=== PATIENT | male | born 1980 | race Caucasian/White ===

== ENCOUNTER 2023-06-07 16:32 | Emergency (ER) | payer SELFPAY ==
[2023-06-07 16:59] LABS: GLUCOSE, URINE (UA) NEGATIVE (NEGATIVE); KETONES,URINE (UA) >=80 mg/dL (NEGATIVE); LEUKOCYTE ESTERASE, URINE NEGATIVE (NEGATIVE); NITRITE,URINE POSITIVE (NEGATIVE); OCCULT BLOOD,URINE SMALL (NEGATIVE); PROTEIN,URINE 30 mg/dL (NEGATIVE); UROBILINOGEN,URINE 2 E.U./dL (NORMAL)
[2023-06-07 17:02] LABS: BILIRUBIN,URINE NEGATIVE (NEGATIVE); CLARITY,URINE CLOUDY (CLEAR); ICTOTEST,URINE NEGATIVE
[2023-06-07 17:08] LABS: BASOPHILS # (AUTO) 0.1 10^3/uL (0.0-0.1); BASOPHILS % (AUTO) 0.4 %; EOSINOPHILS % (AUTO) 0.2 %; HCT - HEMATOCRIT 45.3 % (42.0-52.0); HGB - HEMOGLOBIN 15.4 g/dL (14.0-18.0); LYMPHOCYTES # (AUTO) 1.7 10^3/uL (1.5-3.5); LYMPHOCYTES % (AUTO) 10.3 %; MEAN CORPUSCULAR VOLUME 85.3 fL (80.0-94.0); MEAN PLATELET VOLUME 9.4 fL (7.4-11.4); MONOCYTES # (AUTO) 0.7 10^3/uL (0.0-1.0); MONOCYTES % (AUTO) 4.4 %; NEUTROPHILS % (AUTO) 84.5 %; PLT - PLATELET COUNT 345 10^3/uL (130-450); RED BLOOD COUNT 5.31 10^6/uL (4.70-6.10); RED CELL DISTRIBUTION WIDTH 12.1 % (12.0-15.0); WHITE BLOOD COUNT 16.5 x10^3/uL (4.8-10.8)
[2023-06-07 17:09] LABS: AMORPHOUS SEDIMENT,UR Few /LPF; BACTERIA,URINE Few /HPF (None Seen); RBC,URINE 0-5 /HPF (0-5); SQUAMOUS EPITHELIAL CELL,UR RARE Squamous (<= Few); WBC,URINE 0-3 /HPF (0-3)
[2023-06-07 17:20] LABS: ALBUMIN 4.8 g/dL (3.2-5.5); ALBUMIN/GLOBULIN RATIO 1.5 (1.0-2.2); BILIRUBIN,TOTAL 0.6 mg/dL (0.2-1.0); CALCIUM 9.7 mg/dL (8.5-10.3); CREATININE 0.9 mg/dL (0.6-1.3); POTASSIUM 3.7 mmol/L (3.5-4.5)
[2023-06-07] MEDS ORDERED: SODIUM CHLORIDE 0.9% 1,000 ML IV STA (17:46)
[2023-06-07] MEDS ORDERED: ONDANSETRON 4 MG/2 ML VIAL IVP STA (17:46)
[2023-06-07] MEDS ORDERED: HYDROmorphone 1 MG/ML CARPUJECT IVP STA (17:53)
--- NOTE | 2023-06-07 17:55 | ED Physician Documentation ---
PD HPI ABD PAIN - Stated complaint Stated Complaint: ABD PX/VOMIT/ - Chief complaint Chief Complaint: Abd Pain - History obtained from History obtained from: Patient - History of Present Illness Timing - details: Gradual onset, Still present, Waxing and waning Pain level max: 7 Quality: Cramping, Aching, Stabbing, Throbbing Location: All over / everywhere, RLQ, Suprapubic Improved by: Position Worsened by: Palpation Associated symptoms: Nausea, Diarrhea, Hematuria, Loss of appetite. No: Fever, Vomiting, Hematemesis, Constipation, Dysuria - Additional information Additional information: This is a very nice 42-year-old male who presents with generalized lower abdominal pain as well as some hematuria. He states symptoms started when he woke up today. He has had several episodes of diarrhea and has not had an appetite. He feels nauseous, and has generalized abdominal pain though more focally in the right lower quadrant and suprapubic regions. He has not had any flank pain or pain radiating from the back into the pelvis. He has not had a fever to his knowledge, no chest pain or difficulty breathing, no recent cough or URI symptoms. He has no chronic medical conditions, and has not taken any medication for this issue. He last ate yesterday. Review of Systems Constitutional: reports: Reviewed and negative Eyes: reports: Reviewed and negative Ears: reports: Reviewed and negative Nose: reports: Reviewed and negative Throat: reports: Reviewed and negative Cardiac: reports: Reviewed and negative Respiratory: reports: Reviewed and negative GI: reports: Abdominal Pain, Nausea, Vomiting. denies: Constipation, Diarrhea : reports: Hematuria. denies: Dysuria, Frequency, Hesitancy Skin: reports: Reviewed and negative Musculoskeletal: reports: Reviewed and negative Neurologic: reports: Reviewed and negative PD PAST MEDICAL HISTORY - Past Medical History Past Medical History: Yes Cardiovascular: None Respiratory: None Neuro: None Endocrine/Autoimmune: None GI: None : None HEENT: None Psych: None Musculoskeletal: None Derm: None - Past Surgical History Past Surgical History: No - Present Medications Home Medications: Ambulatory Orders Medication Instructions Recorded Confirmed Ondansetron Odt [Zofran] 4 mg TL Q6H PRN #10 tablet 06/07/23 Sulfamethox/Trimeth 800/160 1 tablet PO BID 7 Days #14 tablet 06/07/23 [Bactrim Ds] - Allergies Allergies/Adverse Reactions: Allergies Allergy/AdvReac Type Severity Reaction Status Date / Time No Known Drug Allergies Allergy Verified 06/07/23 16:48 - Social History Does the pt smoke?: No Smoking Status: Never smoker Does the pt drink ETOH?: No Does the pt have substance abuse?: No - Immunizations Immunizations are current?: Yes PD ED PE NORMAL - Vitals Vital signs reviewed: Yes - General General: Alert and oriented X 3, No acute distress (Appears mildly restless, cannot find position of comfort), Well developed/nourished - HEENT HEENT: Atraumatic, Moist mucous membranes - Neck Neck: Supple, no meningeal sign, No JVD - Cardiac Cardiac: RRR, No murmur - Respiratory Respiratory: No respiratory distress, Clear bilaterally - Abdomen Abdomen: Normal bowel sounds, Soft, Other (Generalized lower abdominal tenderness most prominently in the right lower quadrant and McBurney's point but also suprapubic and some lesser discomfort in the left lower quadrant. Negative Schumacher's) - Back Back: No CVA TTP, No spinal TTP - Derm Derm: Normal color, Warm and dry - Extremities Extremities: No deformity, No tenderness to palpate, Normal ROM s pain, No edema, No calf tenderness / cord - Neuro Neuro: Alert and oriented X 3 Eye Opening: Spontaneous Motor: Obeys Commands Verbal: Oriented GCS Score: 15 - Psych Psych: Normal mood, Normal affect Results - Vitals Vitals: Vital Signs - 24 hr 06/07/23 06/07/23 06/07/23 16:48 17:05 19:00 Temperature 36.3 C L 36.7 C Heart Rate 80 56 L Respiratory 18 17 Rate Blood Pressure 121/86 H O2 Saturation 97 96 06/07/23 20:00 Temperature Heart Rate 78 Respiratory 16 Rate Blood Pressure 109/89 H O2 Saturation 96 Oxygen O2 Source Room air - Labs Labs: Laboratory Tests 06/07/23 06/07/23 06/07/23 16:55 17:00 17:00 WBC 16.5 H RBC 5.31 Hgb 15.4 Hct 45.3 MCV 85.3 MCH 29.0 MCHC 34.0 RDW 12.1 Plt Count 345 MPV 9.4 Neut # (Auto) 14.0 H Lymph # (Auto) 1.7 Swift # (Auto) 0.7 Eos # (Auto) 0.0 Baso # (Auto) 0.1 Absolute Nucleated RBC 0.00 Nucleated RBC % 0.0 Sodium 138 Potassium 3.7 Chloride 105 Carbon Dioxide 24 Anion Gap 9.0 BUN 12 Creatinine 0.9 Estimated GFR (MDRD) 93 Glucose 112 H Calcium 9.7 Total Bilirubin 0.6 AST 18 ALT 20 Alkaline Phosphatase 65 Total Protein 8.0 Albumin 4.8 Globulin 3.2 Albumin/Globulin Ratio 1.5 Lipase 16 Urine Color YELLOW Urine Clarity CLOUDY Urine pH 6.0 Ur Specific Firth 1.025 Urine Protein 30 H Urine Glucose (UA) NEGATIVE Urine Ketones >=80 H Urine Occult Blood SMALL H Urine Nitrite POSITIVE H Urine Bilirubin NEGATIVE Urine Urobilinogen 2 H Ur Leukocyte Esterase NEGATIVE Urine RBC 0-5 Urine WBC 0-3 Ur Squamous Epith Cells RARE Squamous Amorphous Sediment Few Urine Bacteria Few Ur Microscopic Review INDICATED Urine Culture Comments INDICATED - Rads (name of study) No standard instances Relevant Findings:: Final report received PD Medical Decision Making - ED course Complexity details: reviewed results, re-evaluated patient, considered differential, d/w patient ED course: 42-year-old male presented with generalized lower abdominal pain that started today as described in HPI. Pain is right lower quadrant and across the lower abdomen thus there is concern for possible appendicitis versus UTI, colitis, diverticulitis, kidney ureteral stone. We obtained labs which are significant for white blood cell count of 16,000, otherwise stable. His urinalysis showed nitrites but no other signs of infection, small amount of blood. He remained afebrile and nontoxic-appearing here. He received IV fluids, Zofran and a dose of Dilaudid. I also started him on Zosyn due to suspected appendicitis pending CT scan however CT scan came back as normal. There is no sign of appendicitis or other acute abdominal abnormality. Patient generally feels better after treatment but was fairly surprised at the normal CT scan. I discussed with patient that I think reasonable to treat for this possible UTI pending culture, I am going to place him on Bactrim, and prescribe him Zofran, he can take ibuprofen and Tylenol as needed. He was advised if he developed a fever, increasing pain, or new concerns to return to the ER otherwise anticipate improvement in the next several days. He was advised that if the hematuria does not resolve in the next few days to schedule follow-up with PCP for repeat urinalysis. Departure - Departure Disposition: 01 Home, Self Care Clinical Impression: Abdominal pain Qualifiers: Abdominal location: generalized Qualified Code(s): R10.84 - Generalized abdominal pain Urinary tract infection Qualifiers: Urinary tract infection type: acute cystitis Hematuria presence: with hematuria Qualified Code(s): N30.01 - Acute cystitis with hematuria Condition: Good Instructions: ED UTI Cystitis Male, ED Abdominal Pain Unkn Cause Male Prescriptions: Sulfamethox/Trimeth 800/160 [Bactrim Ds] 1 tablet PO BID 7 Days #14 tablet Ondansetron Odt [Zofran] 4 mg TL Q6H PRN #10 tablet PRN Reason: Nausea / Vomiting Comments: Emory, it is not entirely clear what caused such severe pain. You may have passed a small kidney stone but there is no evidence of stones on the CT scan, o r an appendicitis or other issue on the CT scan. You do have minor signs of infection in the urine so I am going to treat you for possible UTI with antibiotics for the next 7 days. Have also given you was nausea medication to take as needed. You can take ibuprofen and Tylenol. If you develop a fever or worsening symptoms, please return to the ER. Medications sent to [facility]. Forms: PCP List
[2023-06-07] MEDS ORDERED: PIPERACILLIN/TAZOBACTAM 4.5 GM in SODIUM CHLORIDE 0.9% MINIBAG 100 ML IV STA (19:54)
[2023-06-07] MEDS ORDERED: iohexoL-300 100 ML VIAL IVP ONE (20:12)
--- NOTE | 2023-06-07 20:36 | CT Report ---
PROCEDURE: Abdomen/Pelvis W INDICATIONS: RLQ pain, suprapubic pain, eval for appy CONTRAST: 100 ML OMNI 300 TECHNIQUE: After the administration of intravenous contrast, a CT scan of the abdomen and pelvis was performed. Images were recorded and evaluated at appropriate window settings. Reformats: coronal and sagittal. F or radiation dose reduction, the following was used: automated exposure control, adjustment of mA and /or kV according to patient size. COMPARISON: None. FINDINGS: Image quality: Excellent. Lung bases and heart: Unremarkable. Liver: No solid mass. Gallbladder and biliary tree: No radiopaque stones or wall thickening. No biliary dilation. Spleen: No splenomegaly. Pancreas: No pancreatic ductal dilation. Adrenals: No adrenal nodule. Kidneys and ureters: No hydronephrosis. No renal cystic lesion which requires follow up. No solid mas s. Bowel and peritoneum: No bowel distension. No pathologic free fluid. Normal appendix. Lymph nodes: No central or retroperitoneal adenopathy. Vessels: No infrarenal aortic aneurysm. PELVIS Reproductive organs: Unremarkable. Bladder: No abnormal wall thickening, accounting for underdistention. Pelvic lymph nodes: No pelvic adenopathy by size criteria. Bones: No aggressive osseous abnormality. Other: Small ventral hernia containing fat. IMPRESSION: 1.Normal appearance of the appendix. 2.No acute findings within the abdomen or pelvis. Reviewed by: Adam Uribe MD on 06/07/2023 8:35 PM PST Approved by: Adam Uribe MD on 06/07/2023 8:35 PM PST Station ID: [id number]
[2023-06-07] MEDS ORDERED: KETOROLAC 15 MG/ML VIAL IVP STA (20:38)
[2023-06-07 21:06] VITALS: BP 112/64; O2SAT 2
== END 2023-06-07 21:02 | disposition home or self-care (01) ==
LOC: ED 16:32
DX: N30.01 Acute cystitis with hematuria (principal); R10.84 Generalized abdominal pain
CPT/HCPCS: 36415; 74177; 80053; 81001; 83690; 85025; 87086; 96365; 96375; 99283; 99284; J1170; Q9967; 81003